=== PATIENT | female | born 1945 | race African-American/Black ===

== ENCOUNTER 2016-09-05 09:02 | Outpatient (CLI) | payer MEDICARE, OTHER ==
[2016-09-05 12:38] LABS: ALT (SGPT) 11 U/L (8-55); AST (SGOT) 18 U/L (5-34); Albumin 4.4 g/dL (3.4-4.8); Alkaline Phosphatase 75 U/L (40-150); Bilirubin, Direct 0.2 mg/dL (0.1-0.3); Bilirubin, Total 0.3 mg/dL (0.2-1.2); Cholesterol 174 mg/dL (< 200 Desired); HDL Cholesterol 58 mg/dL (>60 Neg Risk); LDL Cholesterol, Calculated 106 mg/dL; Protein, Total 7.5 g/dL (5.8-8.1); Triglycerides 50 mg/dL (Less than 150)
== END 2016-09-05 09:03 | disposition home or self-care (01) ==
LOC: HPCALD 09:02
PROVIDERS: ATTEND Family Medicine
DX: E78.2 Mixed hyperlipidemia (principal); E03.9 Hypothyroidism, unspecified
CPT/HCPCS: 36415; 80061; 80076; 84443

== ENCOUNTER 2017-09-12 11:28 | Outpatient (CLI) | payer MEDICARE ==
--- NOTE | 2017-09-12 13:36 | RAD ---
AP PELVIS: History: Injury to pelvis from fall. FINDINGS: The pelvis appears intact. Hips appear intact. No osseous abnormality identified. IMPRESSION: No acute abnormality. POS: [facility]
== END 2017-09-12 11:29 | disposition home or self-care (01) ==
LOC: BURRAD 11:28
PROVIDERS: ATTEND Family Medicine
DX: S30.0XXA Contusion of lower back and pelvis, initial encounter (principal)
CPT/HCPCS: 72170

== ENCOUNTER 2021-06-01 11:39 | Outpatient (CLI) | payer MEDICARE | END 2021-06-01 11:40 | disposition home or self-care (01) | LOC: BURRAD 11:39 | PROVIDERS: ATTEND Family Medicine | DX: M79.672 Pain in left foot (principal); M21.612 Bunion of left foot; M20.12 Hallux valgus (acquired), left foot ==

== ENCOUNTER 2022-08-29 13:47 | Outpatient (CLI) | payer MEDICARE | END 2022-08-29 13:48 | disposition home or self-care (01) | LOC: BURRAD 13:47 | PROVIDERS: ATTEND Family Medicine | DX: M25.562 Pain in left knee (principal) ==